=== PATIENT | male | born 1970 | race Caucasian/White ===

== ENCOUNTER 2023-12-15 14:40 | Emergency (ER) | payer OTHER, SELFPAY ==
--- NOTE | ~2023-12-15 | CT_ITS ---
EXAMINATION: CT abdomen pelvis w con DATE: 12/15/2023 17:21 INDICATION: Splenic mass. TECHNIQUE: Computed tomography (CT) of the abdomen and pelvis was performed with 100 mL Omnipaque 350 intravenous contrast. Automated exposure control and iterative reconstruction technique were employe d. The dose-length product was 1158.42 mGy-cm. COMPARISON: Chest CT 12/15/2023 FINDINGS: The visualized portions of lung bases are clear without pneumonia or pleural effusion. The heart size is normal. No pericardial effusion. The liver and gallbladder are normal. There is a 4.3 c m enhancing mass in the spleen. The pancreas, adrenal glands, and kidneys are normal. There are bilat eral inguinal hernias containing fat. There are no dilated loops of bowel. The appendix is not visual ized. There are no pathologically enlarged lymph nodes. There is no free intraperitoneal fluid. There is mild thoracic and lumbar spondylosis. IMPRESSION: 1. 4.3 cm enhancing mass in the spleen. The differential diagnosis includes hemangioma, hamartoma, gr anulomatous disease, and less likely malignancy. PET/CT is recommended. Reviewed, dictated and finalized at location A. IMPRESSION: 1. 4.3 cm enhancing mass in the spleen. The differential diagnosis includes hem angioma, hamartoma, granulomatous disease, and less likely malignancy. PET/CT i s recommended.
--- NOTE | ~2023-12-15 | CT_ITS ---
EXAMINATION:CT diagnostic chest wo con DATE: 12/15/2023 16:18 INDICATION: New pulmonary nodule. TECHNIQUE: Computed tomography (CT) of the chest was performed without intravenous contrast. Automate d exposure control and iterative reconstruction technique were employed. The dose-length product (DLP ) was 614.14 mGy-cm. COMPARISON: Abdomen ultrasound 11/23/2007, chest 2 views 12/15/2023 FINDINGS: There is mild scarring at the lung apices. There are 3 mm and 4 mm nodules in left lower lo be. There is a 6 mm nodule at right major fissure. There is a 6 mm nodule at left major fissure. No p leural effusion. The heart size is normal. No pericardial effusion. There is a 4.3 cm mass in the spl een. There is an intramuscular lipoma in right posterior thorax. There is mild thoracic spondylosis. There is mild chronic anterior wedging of multiple mid thoracic vertebral bodies. IMPRESSION: 1. Small pulmonary nodules, likely benign. 2. 4.3 cm splenic mass, probably benign. PET/CT is recommended. Reviewed, dictated and finalized at location A.
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
--- NOTE | ~2023-12-15 | XR_ITS ---
XR chest 2V 12/15/2023 15:39 Indication: Rib pain. Procedure: 2 view chest Comparison: 09/20/2017 Findings: Heart size normal. Left lung clear. New pulmonary nodule identified right upper thorax. Cor relation with CT chest recommended. No focal pneumonia, pleural effusion or edema. Impression: 1: New nodule right upper thorax. Follow-up CT chest recommended to exclude parenchymal nodule. Reviewed, dictated and finalized at location B. Impression: 1: New nodule right upper thorax. Follow-up CT chest recommended to exclude par enchymal nodule.
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
[2023-12-15 14:43] VITALS: BP 137/92; PULSE 65; RESP 16; TEMP 36.4; O2SAT 99
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
[2023-12-15] MEDS: ACETAMINOPHEN 500 MG TABLET 1000 MG PO (15:49)
[2023-12-15 16:53] LABS: Basophils Percent Auto 0.3 % (0.2-1.2); Eosinophils Absolute Auto 0.1 K/mm3 (0-0.3); Eosinophils Percent Auto 0.7 % (0-4.4); Hematocrit 44.7 % (42.0-52.0); Hemoglobin 14.8 g/dL (14.0-18.0); Immature Granulocyte Absolute 0.03 K/mm3 (0.00-0.031); Immature Granulocyte Percent A 0.3 % (0-0.5); Lymphocytes Absolute Auto 2.27 K/mm3 (0.9-3.2); Lymphocytes Percent Auto 20.4 % (18.3-44.2); Mean Corpuscular HGB Conc 33.1 g/dl (32-36); Mean Corpuscular Hemoglobin 29.6 pg (26-34); Mean Corpuscular Volume 89.4 fl (80-100); Mean Platelet Volume 9.6 fl (7.4-10.4); Monocytes Absolute Auto 0.9 K/mm3 (0.1-0.6); Monocytes Percent Auto 8.2 % (2.6-8.5); Neutrophils Absolute Auto 7.8 K/mm3 (1.3-6.7); Neutrophils Percent Auto 70.1 % (45.5-73.1); Platelet Count Result 293 k/mm3 (150-375); Red Cell Distribution Width 14.4 % (11.5-14.5); White Blood Count 11.2 K/mm3 (4.5-10.0)
[2023-12-15 17:01] VITALS: BP 142/84; PULSE 60; RESP 16; O2SAT 97
[2023-12-15 17:04] LABS: Alanine Aminotransferase 15 U/L (6-50); Albumin Level 4.3 g/dL (3.5-5.1); Alkaline Phosphatase 97 U/L (38-126); Anion Gap 10 mmol/L (4-12); Aspartate Amino Transferase 20 U/L (17-59); Bilirubin,Total 0.6 mg/dL (0.2-1.3); Blood Urea Nitrogen 16 mg/dL (9-20); Calcium 8.8 mg/dL (8.4-10.2); Carbon Dioxide 25 mmol/L (22-30); Chloride 108 mmol/L (98-107); Estimated CRCL calculation 99 ml/min; Estimated Glomerular Filt Rate > 60; Glucose 99 mg/dL (65-110); Potassium 3.5 mmol/L (3.4-5.0); Sodium 143 mmol/L (137-145)
== END 2023-12-15 18:17 | disposition home or self-care (01) ==
PROVIDERS: Emergency Provider Physician Assistant; PCP Internal Medicine
DX: S16.1XXA Strain of muscle, fascia and tendon at neck level, initial encounter (principal); S46.912A Strain of unspecified muscle, fascia and tendon at shoulder and upper arm level, left arm, initial encounter; S20.212A Contusion of left front wall of thorax, initial encounter; R91.8 Other nonspecific abnormal finding of lung field; D73.9 Disease of spleen, unspecified; M19.072 Primary osteoarthritis, left ankle and foot; M77.32 Calcaneal spur, left foot; M19.012 Primary osteoarthritis, left shoulder; M47.812 Spondylosis without myelopathy or radiculopathy, cervical region; M47.816 Spondylosis without myelopathy or radiculopathy, lumbar region; M47.814 Spondylosis without myelopathy or radiculopathy, thoracic region; V43.52XA Car driver injured in collision with other type car in traffic accident, initial encounter
CPT/HCPCS: 36415; 71046; 71250; 72125; 72128; 72131; 73030; 73610; 73630; 74177; 80053; 85025; 99284; A9270; Q9967